=== PATIENT | male | born 1980 | race Caucasian/White ===

== ENCOUNTER 2018-08-27 12:07 | Emergency (ER) | payer BC ==
[2018-08-27] MEDS ORDERED: Ondansetron PF 4 MG/2 ML Vial ONE (12:24)
[2018-08-27 12:42] LABS: #Basophils 0.1 thou/uL (0.0-0.2); #Lymphocytes 1.6 thou/uL (1.20-3.40); #Monocytes 1.2 thou/uL (0.11-0.59); #Neutrophils 12.5 thou/uL (1.40-6.50); %Basophils 0.7 % (0.0-1.0); %Lymphocytes 10.6 % (21.0-51.0); %Monocytes 7.5 % (0.0-10.0); %Neutrophils 81.2 % (42.0-75.0); Hemoglobin 17.8 g/dL (14.0-18.0); Mean Corpuscular Hemoglobin 31.1 pg (27.0-31.0); Mean Platelet Volume 5.5 fL (7.4-10.4); Platelet Count 495 thou/uL (130-400); RBC Distribution Width 12.6 % (11.5-14.5); Red Blood Cell (RBC) Count 5.74 mill/uL (4.70-6.10); White Blood Cell (WBC) Count 15.4 thou/uL (4.8-10.8)
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
[2018-08-27 12:55] LABS: ALT (SGPT) 35 U/L (8-55); AST (SGOT) 21 U/L (5-34); Albumin 4.9 g/dL (3.5-5.0); Alcohol 45 mg/dL (Less than 10); Alkaline Phosphatase 64 U/L (40-150); Anion Gap 20 mmol/L (10-20); BUN (Urea Nitrogen) 12 mg/dL (8.9-20.6); Bilirubin, Total 0.4 mg/dL (0.2-1.2); Calc. Creatinine Clearance 0 mL/min (70-130); Carbon Dioxide 22 mmol/L (22-29); Chloride 104 mmol/L (98-107); Estimated GFR-MDRD 85; Globulin 3.1 g/dL (2.4-3.5); Glucose 133 mg/dL (70-105); Potassium 4.6 mmol/L (3.5-5.1); Sodium 141 mmol/L (136-145)
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
[2018-08-27] MEDS ORDERED: Adacel (T-DAP) 0.5 ML SYRINGE ONE ×2 (13:22→13:44)
[2018-08-27] MEDS ORDERED: Lidocaine 2% w/ Epi 1:200K 10 ML VIAL ONE (13:25)
[2018-08-27] MEDS ORDERED: Ketorolac Tromethamine 30 MG/ML VIAL ONE (13:25)
--- NOTE | 2018-08-27 13:28 | RAD ---
PORTABLE CHEST: Date: 08/27/18 An AP portable film at 1235 hours shows a normal sized heart and clear lungs. No infiltrate or effusi on is seen. There is no sign of pneumothorax, pulmonary infiltrate, or gross fracture. Trachea is mid line. IMPRESSION: No acute thoracic finding. POS: HOME
[2018-08-27] MEDS ORDERED: Bacitracin Zinc 1 Packet ONE (13:35)
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
== END 2018-08-27 14:20 | disposition home or self-care (01) ==
LOC: BURERS 12:07
DX: S01.01XA Laceration without foreign body of scalp, initial encounter (principal); S43.401A Unspecified sprain of right shoulder joint, initial encounter; S80.212A Abrasion, left knee, initial encounter; S80.211A Abrasion, right knee, initial encounter; R10.9 Unspecified abdominal pain; V89.2XXA Person injured in unspecified motor-vehicle accident, traffic, initial encounter
CPT/HCPCS: 12001; 70450; 71045; 71260; 72125; 74177; 80053; 80307; 85025; 90471; 90715; 96361; 96374; 96375; J1885; J2405